=== PATIENT | female | born 1985 | race Caucasian/White ===

== ENCOUNTER 2023-02-02 12:02 | Emergency (ER) | payer OTHER, SELFPAY ==
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
[2023-02-02 12:14] VITALS: BP 94/60; PULSE 71; RESP 18; TEMP 37.1; O2SAT 95; BMI 25.6
--- OUTSIDE RECORDS SUMMARY | 2023-02-02 12:27 | XMS_ITS | Patient Health Record ---
Author Name Unknown Organization [facility] Address [address] [place] [address] Care Team Providers Care Wood Veneer Taper Name Role Phone Viky Silver Primary Care Provider ALLERGIES No Known Allergies REASON FOR REFERRAL No Information MEDICATIONS Medication SIG (Take, Route, Frequency, Duration) Notes Start Date End Date Status PARoxetine HCl 10 MG 1 tablet for mood Orally Once a day for 30 day(s) 12/26/2020 Active Advair Diskus 100-50 MCG/DOSE 1 puff Inhalation Twice a day Pt usnsure of dose Active Albuterol Sulfate HFA 108 (90 Base) MCG/ACT 1 puff as needed Inhalation every 4 hrs for 30 days Active Omeprazole 20 MG 1 capsule 30 minutes before morning meal Orally Once a day for 30 day(s) 04/02/2020 Not-Taking IMMUNIZATIONS Vaccine Route Administration Date Status Comme nts TB Test ID Intradermal 03/05/2020 Administered Influenza Flulaval IM Intramuscular 04/02/2020 Administere d Covid 19 Moderna 2nd dose IM Intramuscular 01/08/2021 Administered Covid 19 Moderna 1st dose IM Intramuscular 12/09/2020 Administered Given by Deandr florinda De La O LPN. unable to document under her name SOCIAL HISTORY Tobacco Use: Social History Observation Description Date Details (start date - stop date) Current Smoker NA - NA Sex Assigned At : Social History Observation Description Sex Assigned At Female Tobacco Use/Smoking Question Answer Notes Are you a smoker ? current smoker When did you start smoking long ago How often do you smoke cigarettes? some days, bu t not every day How many cigarettes a day do you smoke? 5 or les s How soon after you wake up d o you smoke your first cigarette? 31-60 minutes Are you interested in quitting? Thinking about q uitting Alcohol Screen (Audit-C) Question Answer Notes Interpretation Negative Cessation counseling Question Answer Notes Patient counseled on the dangers of tobacco use and urged to quit 02/29/2020 PROBLEMS Problem Type ICD Code Onset Dates Problem Status W/U Status Risk SNOMED Code Notes Problem Dysthymic disorder (F34.1) 01/09/20 21 Active confirmed Dysthymia (21602668) Problem Caries (K02.9) Active confirmed Caries (40630918) Problem Moderate episode of recurrent major depressive disorder (F33.1) 01/09/20 21 Active confirmed 450425915 Problem Dental examination (Z01.20) Active confirmed 401903869 Problem GERD without esophagitis (K21.9) Active confirmed Gastroesophagea l reflux disease (760308579) Problem Uncomplicated asthma, unspecified asthma severity, unspecified whether persistent (J45.909) Active confirmed Asthma without status asthmaticus (14118484) Problem 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 Pulpal necrosis (43831867) Problem Apical periodontitis (K04.5) Active confirmed Apical periodontitis (58431448) PLAN OF TREATMENT No Information Insurance Providers Payer Name Payer Address Payer Phone Subscriber Number Group Number Insured Name Patient Relationship to Insured Coverage Start Date Coverage End Date [facility] Medicaid [address] [address] [place] [address] [id number] Mary Decker Self - patient is the insured 0 [employer] [address] [place] [address] [id number] Mary Decker Self - patient is the insured 0 MEDICAL (GENERAL) HISTORY Medical History History ICD Code Asthma H/o depression and anxiety Seasonal allergies Surgical History Surgery Date(Month/Year) X2 Hospitalization History Reason Date(Month/Year) denies recent
[2023-02-02 13:45] VITALS: BP 130/80; PULSE 77; O2SAT 95
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
== END 2023-02-02 15:48 | disposition home or self-care (01) ==
PROVIDERS: Emergency Provider Emergency Medicine
DX: M79.10 Myalgia, unspecified site (principal); M54.2 Cervicalgia; R51.9 Headache, unspecified; Z79.899 Other long term (current) drug therapy
CPT/HCPCS: 70450; 72125; 99282; 99284

== ENCOUNTER 2023-02-15 09:18 | Outpatient (AMB) | payer OTHER, SELFPAY ==
--- OUTSIDE RECORDS SUMMARY | 2023-02-15 09:20 | XMS_ITS | Patient Health Record ---
Author Name Unknown Organization [facility] Address [address] [place] [address] Care Team Providers Care Concrete Curer Name Role Phone Viky Silver Primary Care Provider [phone] ALLERGIES No Known Allergies REASON FOR REFERRAL [...] Vaccine Route Administration Date Status Comme nts Covid 19 Moderna 1st dose IM Intramuscular 12/09/2020 Administered Given by Deandr florinda eD La O LPN. unable to document under her name Covid 19 Moderna 2nd dose IM Intramuscular 01/08/2021 Administered Influenza Flulaval IM Intramuscular 04/02/2020 Administere d TB Test ID Intradermal 03/05/2020 Administered SOCIAL HISTORY Tobacco Use: Social History Observation [...] disorder (F34.1) 01/09/20 21 Active confirmed Dysthymia (17437176) Problem Caries (K02.9) Active confirmed Caries (43162171) Problem Moderate episode of recurrent major depressive disorder (F33.1) 01/09/20 21 Active confirmed 317983456 Problem Dental examination (Z01.20) Active confirmed 990186454 Problem GERD without esophagitis (K21.9) Active confirmed Gastroesophagea l reflux disease (199757832) Problem Uncomplicated asthma, unspecified asthma severity, unspecified whether persistent (J45.909) Active confirmed Asthma without status asthmaticus (24788915) Problem 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 Pulpal necrosis (98760916) Problem Apical periodontitis (K04.5) Active confirmed Apical periodontitis (64748602) PLAN OF TREATMENT No Information Insurance Providers Payer Name Payer Address Payer Phone Subscriber Number Group Number Insured Name Patient Relationship to Insured Coverage Start Date Coverage End Date [facility] Medicaid [address] [address] [place] [address] [id number] Mary Decker Self - patient is the insured 0 [employer] [address] [place] [address] [id number] Mary Decker Self - patient is the insured 0 MEDICAL (GENERAL) HISTORY Medical History History ICD Code Asthma H/o depression and anxiety Seasonal allergies Surgical History Surgery Date(Month/Year) X2 Hospitalization History Reason Date(Month/Year) denies recent
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
[2023-02-15 10:17] VITALS: BP 100/70; PULSE 66; O2SAT 99
== END 2023-02-15 11:04 | disposition home or self-care (01) ==
PROVIDERS: PCP Nurse Practitioner Family; Visit Provider Internal Medicine
DX: M54.50 Low back pain, unspecified (principal)
CPT/HCPCS: 99213

== ENCOUNTER 2023-04-09 12:03 | Outpatient (REF) | payer OTHER, SELFPAY ==
[2023-04-09 13:07] LABS: MANUAL DIFF FLAG NO
[2023-04-09 13:20] LABS: Basophils Percent Auto 0.3 % (0-2); Eosinophils Absolute Auto 0.1 X10*3/uL (0.0-0.4); Eosinophils Percent Auto 1.1 % (0-4); Hematocrit 41.1 % (37.0-47.0); Imm Gran Abs Auto 0.02 X10*3/uL (0.00-0.03); Imm Gran Pct Auto 0.3 % (0.0-0.4); Lymphocytes Absolute Auto 2.5 X10*3/uL (1.2-4.9); Lymphocytes Percent Auto 34.5 % (20-40); Mean Corpuscular HGB Conc 34.1 g/dl (31.0-35.0); Mean Corpuscular Hemoglobin 29.9 pg (27.0-33.0); Mean Corpuscular Volume 87.8 fL (80.0-98.0); Mean Platelet Volume 11.1 fL (9.4-12.3); Monocytes Absolute Auto 0.4 X10*3/uL (0.1-1.2); Monocytes Percent Auto 5.5 % (2-11); Neutrophils Absolute Auto 4.2 x10*3/uL (2.0-8.3); Neutrophils Percent Auto 58.3 % (45-73); Platelet Count 185 X10*3/uL (160-400); Red Blood Count 4.68 X10*6/uL (4.20-5.50); Red Cell Distribution Width 12.2 % (11.0-16.0); White Blood Count 7.1 X10*3/uL (4.8-10.8)
[2023-04-09 13:31] LABS: Estimated Average Glucose 91 mg/dL; Hemoglobin A1c % 4.8 % (<6.0)
[2023-04-09 14:45] LABS: Alanine Aminotransferase 13 U/L (0-31); Albumin Level 4.1 g/dL (3.5-5.0); Alkaline Phosphatase 66 U/L (39-117); Anion Gap 11 (12-20); Aspartate Amino Transferase 20 U/L (5-31); Bilirubin Total 0.4 mg/dL (0.0-1.0); Blood Urea Nitrogen 8 mg/dL (9-16); Calcium 9.2 mg/dL (8.4-10.2); Carbon Dioxide 27 mmol/L (22-29); Chloride 106 mmol/L (96-108); Cholesterol 135 mg/dL (<200); Estimated Glomerular Filt Rate > 60; Glucose Random 115 mg/dL (60-115); Potassium 3.9 mmol/L (3.3-5.1); Sodium 140 mmol/L (135-145)
[2023-04-09 14:48] LABS: Free T4 (Free Thyroxine) 0.97 ng/dL (0.71-1.85); Thyroid Stimulating Hormone 0.23 uIU/mL (0.32-4.0)
[2023-04-12 01:14] LABS: TS Negative Control Passed; TS Panel A 0; TS Panel B 0; TS Positive Control Passed; TSpotTB Negative (Negative)
== END 2023-04-09 12:04 | disposition home or self-care (01) ==
LOC: HO.10HDL 12:03
PROVIDERS: Visit Provider Internal Medicine
DX: J45.909 Unspecified asthma, uncomplicated (principal); R73.03 Prediabetes; Z86.39 Personal history of other endocrine, nutritional and metabolic disease
CPT/HCPCS: 36415; 80053; 82465; 83036; 84439; 84443; 85025; 86481